=== PATIENT | female | born 1955 ===

== ENCOUNTER 2022-12-26 05:00 | Day surgery (SDC) | payer OTHER ==
[~2022-12-26 05:00] MED LIST: HYDROCHLOROTHIA25 MG PO; LIPITOR20 MG PO; METFORMIN HCL500 M3 PO; SYNTHROID137 MCG PO; ZESTRIL20 MG PO
[2022-12-26] MEDS ORDERED: TRAM1TAB98 PO (11:45)
[2022-12-26] MEDS ORDERED: MACROBID 100 M100 MG PO (11:45)
== END 2022-12-26 14:35 | disposition home or self-care (01) ==
LOC: CIR.AMB 05:00
PROVIDERS: ATTEND Obstetrics & Gynecology Gynecology
DX: N81.11 Cystocele, midline (principal); N81.6 Rectocele; Z20.822 Contact with and (suspected) exposure to COVID-19